=== PATIENT | male | born 1970 | race Caucasian/White ===

== ENCOUNTER 2020-05-06 18:48 | Emergency (ER) | payer BC ==
[~2020-05-06] VITALS: Ht 175.3 cm; Wt 113.4 kg
[~2020-05-06 18:48] MED LIST: AUGMENTIN 875-1 EACH PO; CLINDAMYCIN HC150 MG PO
[2020-05-06 21:08] LABS: BASOPHILS % 0.5 % (0.0-1.0); EOSINOPHILS # (AUTO) 0.1 (0.0-0.4); HEMATOCRIT 39.9 % (38.2-49.6); HEMOGLOBIN 12.8 g/dL (14.0-18.0); LYMPHOCYTES # (AUTO) 1.5 (1.0-3.2); LYMPHOCYTES % 18.6 % (18.0-39.1); MEAN CORPUSCULAR HGB CONC 32.1 g/dL (31-35); MEAN CORPUSCULAR VOLUME 87.3 fL (81-99); MONOCYTES # (AUTO) 0.5 (0.2-0.8); MONOCYTES % 6.8 % (4.4-11.3); NEUTROPHILS # (AUTO) 5.7 (2.1-6.9); NEUTROPHILS % 72.6 % (38.7-80.0); PLATELET COUNT 250 x10e3/uL (140-360); RED BLOOD COUNT 4.57 x10e6/uL (4.3-5.7); RED CELL DISTRIBUTION WIDTH 12.9 % (11.7-14.4)
[2020-05-06 21:22] LABS: ALANINE AMINOTRANSFERASE 27 IU/L (0-55); ALBUMIN 3.8 g/dL (3.5-5.0); ALBUMIN/GLOBULIN RATIO 1.1 (0.8-2.0); ALKALINE PHOSPHATASE 82 IU/L (40-150); ANION GAP 11.2 mmol/L (8-16); BLOOD UREA NITROGEN 11 mg/dL (7-26); BUN/CREATININE RATIO 15 (6-25); CALCIUM 8.8 mg/dL (8.4-10.2); CARBON DIOXIDE 28 mmol/L (22-29); CHLORIDE 102 mmol/L (98-107); CREATINE KINASE 129 IU/L (30-200); CREATININE, SERUM 0.74 mg/dL (0.72-1.25); EST GLOMERULAR FILTRATION RATE > 60 ML/MIN (60-); GLUCOSE 108 mg/dL (74-118); POTASSIUM 4.2 mmol/L (3.5-5.1); SODIUM 137 mmol/L (136-145)
== END 2020-05-06 23:05 | disposition home or self-care (01) ==
LOC: ER 19:17
DX: R06.00 Dyspnea, unspecified (principal); R05 Cough; M54.9 Dorsalgia, unspecified; G89.29 Other chronic pain; Z96.651 Presence of right artificial knee joint
CPT/HCPCS: 36415; 71045; 80053; 82550; 82553; 83880; 84484; 85025; 85379; 93005; 99284

== ENCOUNTER 2020-12-29 16:13 | Emergency (ER) | payer BC ==
[~2020-12-29] VITALS: Ht 175.3 cm; Wt 99.8 kg
== END 2020-12-29 17:35 | disposition home or self-care (01) ==
LOC: ER 17:27
DX: U07.1 COVID-19 (principal); M54.9 Dorsalgia, unspecified; G89.29 Other chronic pain; Z87.891 Personal history of nicotine dependence
CPT/HCPCS: 99282

== ENCOUNTER 2021-01-07 08:44 | Emergency (ER) | payer BC ==
[~2021-01-07] VITALS: Ht 182.9 cm; Wt 104.3 kg
[2021-01-07] MEDS ORDERED: SODIUM CHLORIDE 0.9% 100 ML ONE (09:15)
== END 2021-01-07 10:18 | disposition home or self-care (01) ==
LOC: ER 08:55
DX: U07.1 COVID-19 (principal)
CPT/HCPCS: 99283; J7050

== ENCOUNTER 2021-04-07 22:58 | Emergency (ER) | payer BC ==
[~2021-04-07] VITALS: Ht 175.3 cm; Wt 108.9 kg
[2021-04-07] MEDS ORDERED: SODIUM CHLORIDE 0.9% 1000ML 1,000 ML IV STA (23:10)
[2021-04-07 23:37] LABS: BASOPHILS % 0.6 % (0.0-1.0); EOSINOPHILS # (AUTO) 0.1 (0.0-0.4); EOSINOPHILS % 0.9 % (0.0-6.0); HEMATOCRIT 40.8 % (38.2-49.6); HEMOGLOBIN 13.4 g/dL (14.0-18.0); LYMPHOCYTES # (AUTO) 1.7 (1.0-3.2); MEAN CORPUSCULAR HEMOGLOBIN 28.6 pg (28-32); MEAN CORPUSCULAR HGB CONC 32.8 g/dL (31-35); MONOCYTES # (AUTO) 0.4 (0.2-0.8); MONOCYTES % 5.9 % (4.4-11.3); NEUTROPHILS # (AUTO) 4.5 (2.1-6.9); NEUTROPHILS % 67.3 % (38.7-80.0); PLATELET COUNT 230 x10e3/uL (140-360); RED BLOOD COUNT 4.69 x10e6/uL (4.3-5.7); RED CELL DISTRIBUTION WIDTH 12.4 % (11.7-14.4)
[2021-04-07 23:42] LABS: AMPHETAMINES SCREEN,URINE NEGATIVE (NEGATIVE); BENZODIAZEPINES SCREEN,URINE NEGATIVE (NEGATIVE); PHENCYCLIDINE SCREEN,URINE NEGATIVE (NEGATIVE)
[2021-04-08 00:22] LABS: CREATINE KINASE MB 1.7 ng/mL (0-5.0)
[2021-04-08 00:35] LABS: ALBUMIN 3.8 g/dL (3.5-5.0); ALBUMIN/GLOBULIN RATIO 1.2 (0.8-2.0); ANION GAP 13.9 mmol/L (8-16); CALCIUM 8.8 mg/dL (8.4-10.2); CREATININE, SERUM 0.83 mg/dL (0.72-1.25); POTASSIUM 3.9 mmol/L (3.5-5.1)
[2021-04-08 00:54] VITALS: BP 138/95
== END 2021-04-08 00:55 | disposition home or self-care (01) ==
LOC: ER 23:01
DX: R00.2 Palpitations (principal); F41.9 Anxiety disorder, unspecified; M54.9 Dorsalgia, unspecified; G89.29 Other chronic pain; Z96.651 Presence of right artificial knee joint
CPT/HCPCS: 36415; 71045; 80053; 80307; 80320; 82550; 82553; 84484; 85025; 85379; 93005; 99284; J7030

== ENCOUNTER 2021-06-03 12:47 | Emergency (ER) | payer BC ==
[~2021-06-03] VITALS: Ht 358.1 cm; Wt 108.9 kg
[2021-06-03] MEDS ORDERED: LACTATED RINGER'S 1,000 ML INJ ONE (13:15)
[2021-06-03 13:25] LABS: BASOPHILS % 0.6 % (0.0-1.0); EOSINOPHILS # (AUTO) 0.1 (0.0-0.4); EOSINOPHILS % 1.7 % (0.0-6.0); HEMATOCRIT 42.5 % (38.2-49.6); HEMOGLOBIN 13.7 g/dL (14.0-18.0); LYMPHOCYTES % 30.4 % (18.0-39.1); MEAN CORPUSCULAR HEMOGLOBIN 27.6 pg (28-32); MEAN CORPUSCULAR HGB CONC 32.2 g/dL (31-35); MEAN CORPUSCULAR VOLUME 85.7 fL (81-99); MONOCYTES # (AUTO) 0.4 (0.2-0.8); MONOCYTES % 5.7 % (4.4-11.3); NEUTROPHILS % 61.3 % (38.7-80.0); PLATELET COUNT 288 x10e3/uL (140-360); RED BLOOD COUNT 4.96 x10e6/uL (4.3-5.7); RED CELL DISTRIBUTION WIDTH 12.4 % (11.7-14.4)
[2021-06-03 13:48] LABS: CALCIUM 9.4 mg/dL (8.4-10.2); CREATININE, SERUM 0.74 mg/dL (0.72-1.25)
== END 2021-06-03 14:23 | disposition home or self-care (01) ==
LOC: ER 13:06
DX: I83.891 Varicose veins of right lower extremity with other complications (principal); F41.9 Anxiety disorder, unspecified; M54.9 Dorsalgia, unspecified; G89.29 Other chronic pain
CPT/HCPCS: 36415; 80048; 85025; 99283; J7121

== ENCOUNTER 2021-09-14 06:15 | Emergency (ER) | payer BC ==
[~2021-09-14] VITALS: Ht 358.1 cm; Wt 108.9 kg
[2021-09-14] MEDS ORDERED: SODIUM CHLORIDE FLUSH 10 ML SYR IV PRN (06:30)
[2021-09-14] MEDS ORDERED: ASPIRIN 325 MG TAB PO ONE (06:30)
[2021-09-14 06:33] LABS: BASOPHILS # (AUTO) 0.1 (0.0-0.1); BASOPHILS % 0.6 % (0.0-1.0); EOSINOPHILS # (AUTO) 0.1 (0.0-0.4); EOSINOPHILS % 0.8 % (0.0-6.0); HEMATOCRIT 44.7 % (38.2-49.6); HEMOGLOBIN 14.6 g/dL (14.0-18.0); LYMPHOCYTES # (AUTO) 2.4 (1.0-3.2); LYMPHOCYTES % 28.6 % (18.0-39.1); MEAN CORPUSCULAR HEMOGLOBIN 28.2 pg (28-32); MEAN CORPUSCULAR HGB CONC 32.7 g/dL (31-35); MEAN CORPUSCULAR VOLUME 86.3 fL (81-99); MONOCYTES # (AUTO) 0.5 (0.2-0.8); MONOCYTES % 5.7 % (4.4-11.3); NEUTROPHILS # (AUTO) 5.3 (2.1-6.9); NEUTROPHILS % 64.1 % (38.7-80.0); PLATELET COUNT 268 x10e3/uL (140-360); RED BLOOD COUNT 5.18 x10e6/uL (4.3-5.7); RED CELL DISTRIBUTION WIDTH 12.2 % (11.7-14.4)
[2021-09-14 06:56] LABS: ALANINE AMINOTRANSFERASE 41 IU/L (0-55); ALBUMIN 3.6 g/dL (3.5-5.0); ALBUMIN/GLOBULIN RATIO 0.8 (0.8-2.0); ALKALINE PHOSPHATASE 88 IU/L (40-150); ANION GAP 10.7 mmol/L (8-16); BLOOD UREA NITROGEN 9 mg/dL (7-26); BUN/CREATININE RATIO 10 (6-25); CARBON DIOXIDE 28 mmol/L (22-29); CHLORIDE 100 mmol/L (98-107); EST GLOMERULAR FILTRATION RATE 89 ML/MIN (60-); GLUCOSE 183 mg/dL (74-118); POTASSIUM 3.7 mmol/L (3.5-5.1); SODIUM 135 mmol/L (136-145)
[2021-09-14 07:01] LABS: AMPHETAMINES SCREEN,URINE NEGATIVE (NEGATIVE); BENZODIAZEPINES SCREEN,URINE NEGATIVE (NEGATIVE); PHENCYCLIDINE SCREEN,URINE NEGATIVE (NEGATIVE)
[2021-09-14 07:03] LABS: INR 0.87; PROTHROMBIN TIME 12.7 seconds (11.9-14.5)
[2021-09-14 07:04] LABS: PARTIAL THROMBOPLASTIN TIME 30.7 seconds (23.8-35.5)
[2021-09-14 08:16] VITALS: BP 156/80
== END 2021-09-14 08:17 | disposition home or self-care (01) ==
LOC: ER 06:23
DX: R00.2 Palpitations (principal); R73.9 Hyperglycemia, unspecified; F41.9 Anxiety disorder, unspecified; M54.9 Dorsalgia, unspecified; G89.29 Other chronic pain; R94.31 Abnormal electrocardiogram [ECG] [EKG]
CPT/HCPCS: 36415; 71045; 80053; 80307; 84484; 85025; 85610; 85730; 93005; 99283; 99284

== ENCOUNTER 2021-09-23 13:03 | Emergency (ER) | payer BC ==
[~2021-09-23] VITALS: Ht 358.1 cm; Wt 108.9 kg
== END 2021-09-23 14:10 | disposition home or self-care (01) ==
LOC: ER 13:10
DX: R00.2 Palpitations (principal)
CPT/HCPCS: 99282

== ENCOUNTER 2024-04-10 08:26 | Emergency (ER) | payer BC ==
[~2024-04-10] VITALS: Ht 174 cm; Wt 111.1 kg
[2024-04-10 09:02] VITALS: PULSE 88; RESP 16; TEMP 97.8
[2024-04-10 09:23] VITALS: BP 133/92; PULSE 82; RESP 16; O2SAT 98
== END 2024-04-10 09:27 | disposition home or self-care (01) ==
LOC: ER 08:29
DX: I83.891 Varicose veins of right lower extremity with other complications (principal); I10 Essential (primary) hypertension; E11.9 Type 2 diabetes mellitus without complications
CPT/HCPCS: 99284

== ENCOUNTER 2024-04-15 06:52 | Emergency (ER) | payer BC ==
[~2024-04-15] VITALS: Ht 174 cm; Wt 111.1 kg
[2024-04-15 07:11] LABS: BASOPHILS % 0.6 % (0.0-1.0); EOSINOPHILS # (AUTO) 0.1 (0.0-0.4); EOSINOPHILS % 1.4 % (0.0-6.0); HEMATOCRIT 40.9 % (38.2-49.6); HEMOGLOBIN 12.2 g/dL (14.0-18.0); LYMPHOCYTES # (AUTO) 2.1 (1.0-3.2); LYMPHOCYTES % 30.4 % (18.0-39.1); MEAN CORPUSCULAR HEMOGLOBIN 27.4 pg (28-32); MEAN CORPUSCULAR HGB CONC 29.8 g/dL (31-35); MEAN CORPUSCULAR VOLUME 91.9 fL (81-99); MONOCYTES # (AUTO) 0.5 (0.2-0.8); MONOCYTES % 6.9 % (4.4-11.3); NEUTROPHILS # (AUTO) 4.2 (2.1-6.9); NEUTROPHILS % 60.3 % (38.7-80.0); PLATELET COUNT 246 x10e3/uL (140-360); RED BLOOD COUNT 4.45 x10e6/uL (4.3-5.7); RED CELL DISTRIBUTION WIDTH 13.3 % (11.7-14.4); WHITE BLOOD COUNT 6.93 x10e3/uL (4.8-10.8)
[2024-04-15 07:31] LABS: ALBUMIN 3.8 g/dL (3.5-5.0); ANION GAP 13.2 mmol/L (8-16); BILIRUBIN,TOTAL 0.2 mg/dL (0.2-1.2); CALCIUM 9.3 mg/dL (8.4-10.2); CREATININE, SERUM 0.81 mg/dL (0.72-1.25); POTASSIUM 4.2 mmol/L (3.5-5.1); TOTAL PROTEIN 7.7 g/dL (6.5-8.1)
[2024-04-15 10:08] VITALS: PULSE 74; RESP 18; TEMP 98; O2SAT 100
== END 2024-04-15 10:11 | disposition home or self-care (01) ==
LOC: ER 06:54
DX: T38.3X1A Poisoning by insulin and oral hypoglycemic [antidiabetic] drugs, accidental (unintentional), initial encounter (principal); E11.65 Type 2 diabetes mellitus with hyperglycemia; I10 Essential (primary) hypertension
CPT/HCPCS: 36415; 80053; 82948; 83735; 85025; 99283

== ENCOUNTER 2024-08-28 14:40 | Emergency (ER) | payer BC ==
[~2024-08-28] VITALS: Ht 174 cm; Wt 111.1 kg
[2024-08-28 15:08] VITALS: PULSE 70; RESP 15; TEMP 97.3; O2SAT 99
== END 2024-08-28 16:31 | disposition home or self-care (01) ==
LOC: ER 15:07
DX: E11.9 Type 2 diabetes mellitus without complications (principal); F41.0 Panic disorder [episodic paroxysmal anxiety]; I10 Essential (primary) hypertension; M54.9 Dorsalgia, unspecified
CPT/HCPCS: 36415; 82948; 99283

== ENCOUNTER 2024-10-30 11:16 | Emergency (ER) | payer BC ==
[~2024-10-30] VITALS: Ht 175.3 cm; Wt 129.3 kg
[2024-10-30 11:29] VITALS: PULSE 95; RESP 19; TEMP 98.1
[2024-10-30 12:49] VITALS: BP 158/69; PULSE 72; RESP 18; TEMP 98.2; O2SAT 97
== END 2024-10-30 12:50 | disposition home or self-care (01) ==
LOC: ER 11:30
DX: R06.00 Dyspnea, unspecified (principal); I10 Essential (primary) hypertension; E11.9 Type 2 diabetes mellitus without complications
CPT/HCPCS: 71046; 93005; 99282